=== PATIENT | female | born 1965 | race Caucasian/White ===

== ENCOUNTER 2017-01-20 19:09 | Emergency (ER) | payer OTHER | END 2017-01-20 21:40 | disposition home or self-care (01) | LOC: ER 19:09 | DX: S93.491A Sprain of other ligament of right ankle, initial encounter (principal); Z87.891 Personal history of nicotine dependence; Z98.51 Tubal ligation status; X50.1XXA Overexertion from prolonged static or awkward postures, initial encounter; Y92.009 Unspecified place in unspecified non-institutional (private) residence as the place of occurrence of the external cause ==